=== PATIENT | female | born 1985 | race Caucasian/White ===

== ENCOUNTER 2023-06-17 03:02 | Emergency (ER) | payer OTHER ==
[2023-06-17 03:16] VITALS: BP 104/72; PULSE 61; RESP 18; TEMP 98.5; BMI 23.3
[2023-06-17] MEDS ORDERED: IBUPROFEN 600 MG TABLET (FP) PO ONE (04:03)
[2023-06-17] MEDS: IBUPROFEN 600 MG TABLET (FP) PO ONE (04:04)
[2023-06-17 04:14] LABS: THROAT:GRP A STREP DETECTED (NOTDETECTED)
[2023-06-17] MEDS: PENICILLIN G BENZATHINE 1,200,000 UNIT/2 ML PFS IM ONE (04:41)
== END 2023-06-17 05:04 | disposition home or self-care (01) ==
LOC: JER 03:02
DX: J02.0 Streptococcal pharyngitis (principal); H92.03 Otalgia, bilateral; R50.9 Fever, unspecified; Z20.822 Contact with and (suspected) exposure to COVID-19
CPT/HCPCS: 0241U-QW; 87070; 87651; 99284-25